=== PATIENT | male | born 1945 | race Caucasian/White ===

== ENCOUNTER 2017-11-19 14:29 | Emergency (ER) | payer MEDICARE, BC ==
[~2017-11-19] VITALS: Ht 182.9 cm; Wt 100.0 kg
[2017-11-19] MEDS ORDERED: ondansetron/PF 4mg/2ml inj IV ONE (15:00)
[2017-11-19] MEDS ORDERED: morphine 5 MG/ML injection IV ONE (15:00)
[2017-11-19 15:22] LABS: BASOPHILS % (AUTO) 0.6 % (0-1); EOSINOPHILS % (AUTO) 0.5 % (0-6); HEMATOCRIT 38.6 % (42.0-52.0); HEMOGLOBIN 13.6 g/dl (14.0-17.9); LYMPHOCYTES # (AUTO) 1.7 X10'3 (1.1-4.8); LYMPHOCYTES % (AUTO) 24.1 % (21-51); MEAN CORPUSCULAR HEMOGLOBIN 32.7 PG (27.0-31.0); MEAN CORPUSCULAR HGB CONC 35.1 % (33.0-36.5); MEAN CORPUSCULAR VOLUME 93.2 FL (78-98); MEAN PLATELET VOLUME 7.4 FL (7.4-10.4); MONOCYTES # (AUTO) 0.6 X10'3 (0-0.9); MONOCYTES % (AUTO) 9.1 % (2-12); NEUTROPHILS # (AUTO) 4.5 X10'3 (1.8-7.7); NEUTROPHILS % (AUTO) 65.7 % (42-75); PLATELET COUNT 199 X10'3 (140-440); RED BLOOD COUNT 4.15 X10'6 (4.70-6.10); RED CELL DISTRIBUTION WIDTH 12.6 % (11.5-14.5); WHITE BLOOD COUNT 6.9 X10'3 (4.5-11.0)
[2017-11-19] MEDS ORDERED: LIDOcaine 5% patch TP ONE (15:30)
[2017-11-19 15:35] LABS: PARTIAL THROMBOPLASTIN TIME 26 SECONDS (22-32)
[2017-11-19] MEDS ORDERED: morphine 2 MG/ML inj. syringe IV ONE (15:50)
[2017-11-19 15:51] LABS: ANION GAP 11 (8-16); BLOOD UREA NITROGEN 25 MG/DL (7-18); BUN/CREATININE RATIO 22.7 (5.4-32.0); CALCIUM 8.5 MG/DL (8.5-10.1); CHLORIDE 107 MMOL/L (99-107); GLUCOSE 103 MG/DL (70-104); PHOSPHORUS 1.9 MG/DL (2.3-4.5); POTASSIUM 3.3 MMOL/L (3.5-5.1); SODIUM 143 MMOL/L (135-145); TOTAL CARBON DIOXIDE 25.2 MMOL/L (24-32); eGFR 66 ML/MIN
[2017-11-19 15:52] LABS: ALANINE AMINOTRANSFERASE 28 U/L (12-78); ALBUMIN 3.8 G/DL (3.4-5.0); ALBUMIN/GLOBULIN RATIO 1.2 (1.1-1.5); ALKALINE PHOSPHATASE 51 IU/L (46-116); ASPARTATE AMINO TRANSFERASE 18 U/L (10-37); BILIRUBIN,TOTAL 0.4 MG/DL (0.1-1.0); MAGNESIUM 1.9 MG/DL (1.5-2.4); TOTAL PROTEIN 7.1 G/DL (6.4-8.2)
[2017-11-19] MEDS ORDERED: potassium Cl 20 mEq SR tablet PO ONE (18:35)
[2017-11-19 18:52] VITALS: BP 131/65
== END 2017-11-19 18:30 | disposition home or self-care (01) ==
LOC: ER 14:29
DX: M79.602 Pain in left arm (principal); E87.6 Hypokalemia; M54.2 Cervicalgia
CPT/HCPCS: 36415; 71045; 80053; 83735; 83880; 84100; 84443; 84484; 85025; 85610; 85730; 93005; 96374; 99285; J2405